=== PATIENT | male | born 1995 | race Caucasian/White ===

== ENCOUNTER 2020-11-02 02:31 | Emergency (ER) | payer SELFPAY ==
[~2020-11-02] VITALS: Ht 190.5 cm; Wt 102.1 kg
[2020-11-02] MEDS ORDERED: KEPPRA500 MG PO (02:49)
== END 2020-11-02 03:01 | disposition home or self-care (01) ==
LOC: ER 02:49
DX: G40.909 Epilepsy, unspecified, not intractable, without status epilepticus (principal)
CPT/HCPCS: 99283